=== PATIENT | female | born 1955 | race Caucasian/White ===

== ENCOUNTER → 2017-09-23 | Outpatient (CLI) | payer OTHER ==
[~2017-09-23] MED LIST: CEP500 PO; ESTR-43 PO; MECL-111 PO; PRESTIQUE PO; PRO100 PO; [UNRECOGNIZED DRUG - OTHER] PO
== END ==
LOC: LAB 13:54
PROVIDERS: ATTEND Nurse Practitioner Family
DX: E83.52 Hypercalcemia (principal); R79.89 Other specified abnormal findings of blood chemistry
CPT/HCPCS: 36415; 82670; 83001; 83970; 84403; 84436; 84443; 84479; 86376; 86800